=== PATIENT | female | born 1990 | race African-American/Black ===

== ENCOUNTER 2017-10-12 14:54 | Emergency (ER) | payer OTHER ==
[2017-10-12] MEDS ORDERED: NAPROXEN 250 MG TABLET PO ONE (15:39)
[2017-10-12] MEDS ORDERED: BACITRACIN ZINC OINTMENT 15 GM TP ONE (15:39)
[2017-10-12] MEDS ORDERED: DIPH/PERTUSS(ACELL)/TETANUS VAC/PF 0.5 ML SYR (>=10YO) IM ONE (15:39)
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
[2017-10-12 17:32] VITALS: BP 119/53
== END 2017-10-12 17:32 | disposition home or self-care (01) ==
LOC: ER 14:54
DX: S50.01XA Contusion of right elbow, initial encounter (principal); S80.212A Abrasion, left knee, initial encounter; V28.9XXA Unspecified motorcycle rider injured in noncollision transport accident in traffic accident, initial encounter; Z23 Encounter for immunization; F17.200 Nicotine dependence, unspecified, uncomplicated
CPT/HCPCS: 99283; 90471; 73080; 73562; 90715; J3490

== ENCOUNTER 2017-10-28 10:03 | Emergency (ER) | payer OTHER ==
[2017-10-28] MEDS ORDERED: ACETAMINOPHEN 325 MG TABLET PO ONE (10:16)
--- NOTE | 2017-10-28 10:28 | ER Document Report ---
HPI - HPI Pain Level: 4 Notes: Patient is a 27-year-old female who presents to the ED complaining of injury to her left thumb prior to arrival. Patient states that she slammed her left thumb in a door. Patient states that she has had pain in in some swelling since then. Patient states that she has trouble bending her finger because of the pain. She has not noticed any numbness or tingling or break in the skin. The pain does not radiate otherwise. She denies any drug allergies or other significant past medical history. Patient states that she would like a urinary hCG test as well. Denies any headache, fever, neck pain, URI, sore throat, chest pain, palpitations, syncope, cough, shortness of breath, wheeze, dyspnea, abdominal pain, nausea/vomiting/diarrhea, urinary retention, dysuria, hematuria , numbness/tingling, muscle paralysis/weakness, or rash. - ROS Notes: REVIEW OF SYSTEMS: CONSTITUTIONAL : Denies fever, chills, or sweats. Denies recent illness. EENT: Denies eye, ear, throat, or mouth pain or symptoms. Denies nasal or sinus congestion or discharge. Denies throat, tongue, or mouth swelling or difficulty swallowing. CARDIOVASCULAR: Denies chest pain. Denies palpitations or racing or irregular heart beat. Denies ankle edema. RESPIRATORY: Denies cough, cold, or chest congestion. Denies shortness of breath, difficulty breathing, or wheezing. GASTROINTESTINAL: Denies abdominal pain or distention. Denies nausea, vomiting , or diarrhea. Denies blood in vomitus, stools, or per rectum. Denies black, tarry stools. Denies constipation. GENITOURINARY: Denies difficulty urinating, painful urination, burning, frequency, blood in urine, or discharge. MUSCULOSKELETAL: see hpi SKIN: Denies rash, lesions or sores. NEUROLOGICAL: Denies confusion or altered mental status. Denies passing out or loss of consciousness. Denies dizziness or lightheadedness. Denies headache. Denies weakness or paralysis or loss of use of either side. Denies problems with gait or speech. Denies sensory loss, numbness, or tingling. Denies seizures. ALL OTHER SYSTEMS REVIEWED AND NEGATIVE. Dictation was performed using [employer] recognition software Past Medical History - Social History Smoking Status: Current Every Day Smoker Family History: Reviewed & Not Pertinent Renal/ Medical History: Denies: Hx Peritoneal Dialysis - Immunizations Hx Diphtheria, Pertussis, Tetanus Vaccination: No Vertical Provider Document - CONSTITUTIONAL Agree With Documented VS: Yes Notes: PHYSICAL EXAMINATION: GENERAL: Well-appearing, well-nourished and in no acute distress. LUNGS: Breath sounds clear to auscultation bilaterally and equal. No wheezes rales or rhonchi. HEART: Regular rate and rhythm without murmurs, rubs, gallops. Musculoskeletal: Left thumb: + mild swelling noted w/o obvious ecchymosis or erythema. LROM to passive/active, but pt able to flex at each joint. Strength 4 +/5. N/V intact distal. No scaphoid tenderness. + tenderness to the left 1st metacarpal, MCP, and prox phalange. No other bony tenderness. Extremities: No cyanosis, clubbing, or edema b/l. Peripheral pulses 2+. Capillary refill less than 3 seconds. NEUROLOGICAL: Normal speech, normal gait. Normal sensory, motor exams PSYCH: Normal mood, normal affect. SKIN: Warm, Dry, normal turgor, no rashes or lesions noted. - INFECTION CONTROL TRAVEL OUTSIDE OF THE [place] IN LAST 30 DAYS: No - RESPIRATORY O2 Sat by Pulse Oximetry: 100 Course - Re-evaluation Re-evalutation: 10/28/17 11:04 Patient is an afebrile, well-hydrated, 27-year-old female who presents to the ED with a left thumb contusion, and positive test. Vitals are stable. PE is otherwise unremarkable for any neurovascular compromise, obvious tendon/ligament rupture, obvious fracture or dislocation. See x-ray results. Urine hCG was positive. Recommend conservative measures for symptoms. Patient will need a follow-up with her PCM in 3-5 days. She will need to get evaluated with [facility] otherwise for her . Consider consult with orthopedics/physical therapy for ongoing/worsening symptoms. Return to the ED with any worsening/concerning symptoms otherwise as reviewed in discharge. Patient is in agreement. - Vital Signs Vital signs: Temp Pulse Resp BP Pulse Ox 98.7 F 80 18 116/55 L 100 10/28/17 10:09 10/28/17 10:10/28/17 10:10/28/17 10:10/28/17 10:09 Discharge - Discharge Clinical Impression: Positive urine test Thumb contusion Qualifiers: Encounter type: initial encounter Damage to nail status: without damage Laterality: left Qualified Code(s): S60.012A - Contusion of left thumb without damage to nail, initial encounter Condition: Stable Disposition: HOME, SELF-CARE Instructions: ([facility]), [facility], Contusion ([facility]) Additional Instructions: Rest, Ice, Compression, Elevation Tylenol/ibuprofen as needed Light stretches daily Strength exercises as able Moist heat and massage may help F/u with your PCP in 3-5 days for a recheck Consider consult(s) with Orthopedics/physical therapy for ongoing/worsening symptoms Return to the ED with any worsening symptoms and/or development of fever, headache, chest pain, palpitations, syncope, shortness of breath, trouble breathing, abdominal pain, n/v/d, muscle weakness/paralysis, numbness/tingling, swelling, redness, or other worsening symptoms that are concerning to you. Prescriptions: Naproxen 500 mg PO BID PRN #30 tablet PRN Reason: Referrals: [facility] [Provider Group] - Follow up as needed [facility] [Provider Group] - Follow up in 1 week
--- NOTE | 2017-10-28 10:57 | RADIOLOGY REPORT (SQ) ---
EXAM DESCRIPTION: HAND LEFT 3 VIEWS/ attention thumb COMPLETED DATE/TIME: 10/28/2017 10:37 am REASON FOR STUDY: Crush injury left thumb COMPARISON: None. EXAM PARAMETERS: NUMBER OF VIEWS: Three views. TECHNIQUE: AP, lateral and oblique radiographic images acquired of the left hand. LIMITATIONS: None. FINDINGS: MINERALIZATION: Normal. BONES: No acute fracture or dislocation. No worrisome bone lesions. JOINTS: No effusions. SOFT TISSUES: No soft tissue swelling. No foreign body. OTHER: No other significant finding. IMPRESSION: Nothing acute. No fracture identified. TECHNICAL DOCUMENTATION: JOB ID: [id number] [employer]- All Rights Reserved
[2017-10-28 11:24] VITALS: BP 126/66
== END 2017-10-28 11:32 | disposition home or self-care (01) ==
LOC: ER 10:03
DX: S60.012A Contusion of left thumb without damage to nail, initial encounter (principal); W23.0XXA Caught, crushed, jammed, or pinched between moving objects, initial encounter; F17.200 Nicotine dependence, unspecified, uncomplicated; Z32.01 Encounter for pregnancy test, result positive
CPT/HCPCS: 81025; 99283

== ENCOUNTER 2018-05-30 06:01 | Outpatient (CLI) | payer OTHER, MEDICAID ==
[2018-05-30 06:32] LABS: APPEARANCE,URINE CLOUDY; BILIRUBIN,URINE NEGATIVE (NEGATIVE); COLOR,URINE AMBER; GLUCOSE, URINE NEGATIVE (NEGATIVE); KETONES,URINE NEGATIVE (NEGATIVE); LEUKOCYTE ESTERASE,URINE LARGE (NEGATIVE); NITRITE,URINE NEGATIVE (NEGATIVE); PROTEIN,URINE 100 mg/dL (NEGATIVE); URINE SPECIFIC GRAVITY 1.017
[2018-05-30 07:01] LABS: URINE AMPHETAMINES SCREEN NEGATIVE; URINE BARBITURATES SCREEN NEGATIVE; URINE BENZODIAZEPINES SCREEN NEGATIVE; URINE COCAINE SCREEN NEGATIVE; URINE METHADONE SCREEN NEGATIVE; URINE PHENCYCLIDINE SCREEN NEGATIVE
[2018-05-30 07:08] LABS: URINE MARIJUANA (THC) SCREEN UNCONFIRMED POSITIVE
--- NOTE | 2018-05-30 10:33 | Non Stress Test Report ---
Non Stress Test Datetime Report Generated by CPN: 05/30/2018 10:32 DEMOGRAPHIC EGA NST: 39.3 INDICATION Indication for Study: Other Indication for Study (NST) Other: lc VITAL SIGNS Temperature - NST: 98.2 RESP - NST: 15 MONITORING Monitor Explained: Monitor Explained; Test Explained; Patient Verbalized Understanding Time on Monitor: 05/30/2018 07:00 Time off Monitor: 05/30/2018 10:00 NST Duration: 180 NST INTERVENTIONS NST Interventions: PO Hydration; Reposition Patient Physician Notified NST: K Lin CNM BABY A: [id number] BABY A Movement : Present Contraction Frequency : 4-8 FHR Baseline : 120 Accelerations : 15X15 Decelerations : None Variability : Moderate 6-25bpm NST Review: Meets Criteria for Reactive NST NST Review and Verified By : Chastity Kiran RNC NST Results: Reactive NST REPORT Report Trigger: Send Report
== END 2018-05-30 10:05 | disposition home or self-care (01) ==
LOC: LC 06:01
PROVIDERS: ATTEND Student in an Organized Health Care Education/Training Program
PROC: 4A1HXCZ Monitoring of Products of Conception, Cardiac Rate, External Approach (ICD-10-PCS; principal; 2018-05-30)
DX: O47.1 False labor at or after 37 completed weeks of gestation (principal); Z3A.39 39 weeks gestation of pregnancy
CPT/HCPCS: 81005; 80307; 59025; G0480 ×2; 80349

== ENCOUNTER 2018-05-31 10:09 | Outpatient (CLI) | payer OTHER, MEDICAID ==
[2018-05-31 11:04] LABS: APPEARANCE,URINE CLOUDY; BILIRUBIN,URINE NEGATIVE (NEGATIVE); COLOR,URINE AMBER; GLUCOSE, URINE NEGATIVE (NEGATIVE); KETONES,URINE 80 mg/dL (NEGATIVE); LEUKOCYTE ESTERASE,URINE MODERATE (NEGATIVE); NITRITE,URINE NEGATIVE (NEGATIVE); PROTEIN,URINE 100 mg/dL (NEGATIVE)
[2018-05-31] MEDS ORDERED: HYDROXYZINE PAMOATE 50 MG CAPSULE PO ONE (11:17)
[2018-05-31 11:21] LABS: URINE AMPHETAMINES SCREEN NEGATIVE; URINE BARBITURATES SCREEN NEGATIVE; URINE BENZODIAZEPINES SCREEN NEGATIVE; URINE COCAINE SCREEN NEGATIVE; URINE METHADONE SCREEN NEGATIVE; URINE PHENCYCLIDINE SCREEN NEGATIVE
[2018-05-31] MEDS ORDERED: HYDROXYZINE PAMOATE 50 MG CAPSULE ONE (11:24)
[2018-05-31 11:28] LABS: URINE MARIJUANA (THC) SCREEN UNCONFIRMED POSITIVE
--- NOTE | 2018-05-31 12:06 | Non Stress Test Report ---
Non Stress Test Datetime Report Generated by CPN: 05/31/2018 12:06 DEMOGRAPHIC EGA NST: 39.4 INDICATION Indication for Study: Ordered by Provider Indication for Study (NST) Other: LC MONITORING Monitor Explained: Monitor Explained; Test Explained; Patient Verbalized Understanding Time on Monitor: 05/31/2018 10:29 Time off Monitor: 05/31/2018 11:27 NST Duration: 58 NST INTERVENTIONS NST Interventions: PO Hydration; Reposition Patient Physician Notified NST: Dr. Khan-Dalton BABY A: [id number] BABY A Movement : Present Contraction Frequency : 3-5 FHR Baseline : 140 Accelerations : 15X15 Variability : Moderate 6-25bpm NST Review: Meets Criteria for Reactive NST NST Review and Verified By : Yadira Zapata RN NST Results: Reactive NST REPORT Report Trigger: Send Report
== END 2018-05-31 11:37 | disposition home or self-care (01) ==
LOC: LC 10:09
PROVIDERS: ATTEND Obstetrics & Gynecology Gynecology
PROC: 4A1HXCZ Monitoring of Products of Conception, Cardiac Rate, External Approach (ICD-10-PCS; principal; 2018-05-31)
DX: O47.1 False labor at or after 37 completed weeks of gestation (principal); Z3A.39 39 weeks gestation of pregnancy
CPT/HCPCS: 59025; 80307; 81005

== ENCOUNTER 2018-06-01 02:33 | Inpatient (IN) | payer OTHER, MEDICAID ==
[2018-06-01] MEDS ORDERED: RINGERS SOLUTION,LACTATED 1,000 ML IV ONE ×2 (02:37→02:45)
[2018-06-01] MEDS ORDERED: ONDANSETRON HCL INJ/PF 4 MG/2 ML SDV IV ONE ×2 (03:16→10:36)
[2018-06-01] MEDS ORDERED: ONDANSETRON HCL INJ/PF 4 MG/2 ML SDV ONE ×3 (03:18→10:54)
[2018-06-01] MEDS ORDERED: FENTANYL/BUPIVACAINE/NS/PF 300 MCG/150 ML RTUINJ EPI ONE (03:26)
[2018-06-01] MEDS ORDERED: EPHEDRINE SULFATE INJ 50 MG/1 ML AMPULE ONE ×2 (03:26→10:54)
[2018-06-01 03:27] LABS: ABSOLUTE LYMPHOCYTES (AUTO) 1.2 10^3/uL (0.5-4.7); ABSOLUTE NEUT (AUTO) 12.8 10^3/uL (1.7-8.2); BASOPHILS % (AUTO) 0.1 % (0-2); EOSINOPHILS % (AUTO) 0.2 % (0-6); HEMATOCRIT 33.9 % (36.0-47.0); HEMOGLOBIN 11.7 g/dL (12.0-15.5); LYMPHOCYTES % (AUTO) 7.9 % (13-45); MEAN CORPUSCULAR HEMOGLOBIN 31.4 pg (27.0-33.4); MEAN CORPUSCULAR HGB CONC 34.5 g/dL (32.0-36.0); MEAN CORPUSCULAR VOLUME 91 fl (80-97); MONOCYTES % (AUTO) 6.4 % (3-13); PLATELET COUNT 207 10^3/uL (150-450); RED BLOOD COUNT 3.71 10^6/uL (3.72-5.28); SEGMENTED NEUTROPHILS % (AUTO) 85.4 % (42-78); TOTAL CELLS COUNTED % (AUTO) 100 %
[2018-06-01] MEDS ORDERED: BUPIVACAINE HCL 0.25 % INJ/PF (2.5 MG/1 ML) 30 ML VIAL ONE (03:27)
[2018-06-01] MEDS: RINGERS SOLUTION,LACTATED 1,000 ML IV PRN ×4 (03:48→21:44)
[2018-06-01] MEDS ORDERED: OXYTOCIN/NORMAL SALINE 0 UNIT/0 ML RTUINJ ONE (07:20)
[2018-06-01] MEDS ORDERED: OXYTOCIN/NORMAL SALINE 20 UNIT/1,000 ML RTUINJ IV PRN ×2 (07:43→11:43)
[2018-06-01] MEDS ORDERED: CEFAZOLIN 2 GM/D5W RTU 2 GM/50 ML RTUPB IV ONE ×2 (10:34→10:37)
[2018-06-01] MEDS ORDERED: AZITHROMYCIN INJ 500 MG VIAL IV ONE (10:34)
[2018-06-01] MEDS ORDERED: CITRIC ACID/SODIUM CITRATE ORAL SOLN 15 ML UDCUP ONE (10:36)
[2018-06-01] MEDS ORDERED: LIDOCAINE 2% INJ-PF (20 MG/ML) 10 ML AMPUL ONE (10:37)
[2018-06-01] MEDS ORDERED: AZITHROMYCIN 500 MG in DEXTROSE 5%-WATER 250 ML IV ONE (10:38)
[2018-06-01] MEDS ORDERED: OXYTOCIN 10 UNIT/ML VIAL ONE ×2 (10:53→11:44)
[2018-06-01] MEDS ORDERED: KETOROLAC TROMETHAMINE INJ/PF 30 MG/1 ML SDV ONE (10:54)
[2018-06-01] MEDS ORDERED: OXYTOCIN/NORMAL SALINE 20 UNIT/1,000 ML RTUINJ ONE (10:54)
[2018-06-01] MEDS ORDERED: MIDAZOLAM 2 MG/2 ML INJ ONE (10:54)
[2018-06-01] MEDS ORDERED: FENTANYL CITRATE INJ/PF 100 MCG/2 ML AMPUL ONE ×2 (10:54→13:17)
[2018-06-01] MEDS ORDERED: ACETAMINOPHEN 1,000 MG/100 ML RTUPB IV ONE (10:54)
[2018-06-01] MEDS ORDERED: SIMETHICONE 80 MG TAB.CHEW PO PRN (11:43)
[2018-06-01] MEDS ORDERED: OXYCODONE-ACETAMINOPHEN 5-325 MG TABLET PO PRN (11:43)
[2018-06-01] MEDS ORDERED: DIPH/PERTUSS(ACELL)/TETANUS VAC/PF 0.5 ML SYR (>=10YO) IM PRN (11:43)
[2018-06-01] MEDS ORDERED: ACETAMINOPHEN 325 MG TABLET PO PRN (11:43)
[2018-06-01] MEDS ORDERED: PROMETHAZINE HCL INJ 25 MG/1 ML VIAL IV PRN (11:43)
[2018-06-01] MEDS ORDERED: MEASLES,MUMPS&RUBELLA VACC/PF 0.5 ML VIAL SUBCUT PRN (11:43)
[2018-06-01] MEDS ORDERED: MORPHINE SULFATE 10 MG/ML INJ ONE ×2 (12:18→12:36)
--- NOTE | 2018-06-01 13:45 | Delivery Summary ---
Del Sum A-C Datetime Report Generated by CPN: 06/01/2018 13:45 DELIVERY PERSONNEL DELIVERY PERSONNEL: [id number] Delivery Doctor:: Campos Haque MD Anesthesiologist:: Paolo Alexis MD LEGAL EXECUTIVE ASSISTANT:: Kirk Palencia CRNA Labor and Delivery Nurse:: Teri Zapata RN Construction Millwright:: Odalis Kothari RN Neonatal Nurse Practitioner:: JOSÉ Metzger Nursery Nurse:: Melissa Real RN Law Secretary/ORACLE R12 DEVELOPER: ST Damien Law Secretary/ORACLE R12 DEVELOPER: Jameeenoc Maldonado, CHAINSTITCH FELLED SEAM OPERATOR MATERNAL INFORMATION Delivery Anesthesia: Epidural Medications After Delivery: Pitocin Bolus-Please Comment Meds After Delivery Comment: 40 units in 1000mls NS Maternal Complications: None LABOR SUMMARY EDC: 06/03/2018 00:00 No. Babies in Womb: 1 Attempted: No Labor Anesthesia: Epidural LABOR INFORMATION Reason for Induction: Not Applicable Onset of Labor: 06/01/2018 01:00 Oxytocin: Augmentation Group B Beta Strep: Negative Steroids Given: None Reason Steroids Not Administered: Not Applicable MEMBRANES Membranes Rupture Method: Spontaneous Rupture of Membranes: 06/01/2018 01:00 Length of Rupture (hr): 10.22 Amniotic Fluid Color: Moderate Meconium Amniotic Fluid Amount: Moderate Amniotic Fluid Odor: Normal STAGES OF LABOR Stage 3 hr: 0 Stage 3 min: 1 Total Time in Labor hr: 10 Total Time in Labor min: 14 VAGINAL DELIVERY Episiotomy: None Laceration #1: None Laceration Extension #1: N/A Laceration Repair: Not Applicable Sponge Count Correct: N/A Sharps Count Correct: N/A CSECTION DELIVERY Primary Indication: Nonreassuring Status Secondary Indication: N/A CSection Urgency: Emergency CSection Incidence: Primary Labor: Labor Elective: Nonelective CSection Incision: Lower Uterine Transverse BABY A INFORMATION Delivery Date/Time: 06/01/2018 11:13 Method of Delivery: Born in Route : No : N/A Forceps: N/A Vacuum Extraction: N/A Shoulder Dystocia : No PRESENTATION/POSITION BABY A Presentation: Cephalic Cephalic Presentation: Vertex Vertex Position: Left Occipital Posterior Breech Presentation: N/A PLACENTA INFORMATION BABY A Placenta Delivery Time : 06/01/2018 11:14 Placenta Method of Delivery: Manual Removal Placenta Status: Delivered SCORES BABY A Heart Rate 1 min: Slow, Below 100 bpm Resp Effort 1 min: Absent Reflex Irritability 1 min: Grimace Muscle Tone 1 min: Some Flexion of Extremities Color 1 min: Body [place], Extremities Blue Resuscitation Effort 1 min: Tactile Stimulation; PPV/NCPAP SCORE 1 MIN: 4 Heart Rate 5 min: >100 bpm Resp Effort 5 min: Good Cry Reflex Irritability 5 min: Cough or Sneeze or Pulls Away Muscle Tone 5 min: Active Motion Color 5 min: Body [place], Extremities Blue Resuscitation Effort 5 min: N/A SCORE 5 MIN: 9 INFANT INFORMATION BABY A Gestational Age at Delivery: 39.5 Gestational Status: Full Term- 39- 40.6 Weeks Infant Outcome : Liveborn Infant Condition : Stable Sex: Male IDENTIFICATION BABY A Verification Date/Time: 06/01/2018 11:15 ID Band Number: [id number] Mother's Name Verified: Yes Infant RN Verifying Infant: B Baidy, RN WEIGHT/LENGTH BABY A Infant Birthweight (gm): 3200 Infant Weight (lb): 7 Weight (oz): 1 Infant Length (in): 20.00 Length (cm): 50.80 CORD INFORMATION BABY A No. Cord Vessels: 3 Nuchal Cord : N/A Cord Blood Taken: Yes-For Eval (Mom's Blood Type - or O+) Infant Suction: Mouth; Nose ASSESSMENT BABY A Infant Complications: Multiple Late Decels; Meconium Physical Findings at Delivery: Puncture Wound from Scalp Electrode Physical Findings- Other: umbilical hernia Infant Respirations: Tachypnea Skin to Skin: No Boat Laborer/ALS Called : Yes Infant Care By: Chao Real RN Transferred To: [facility] BABY B INFORMATION : N/A SIGNATURES Signature: with User ID: [email or web address]
[2018-06-01] MEDS ORDERED: HYDROMORPHONE HCL INJ/PF 2 MG/ML AMPULE ONE (14:33)
[2018-06-01] MEDS ORDERED: HYDROMORPHONE HCL INJ/PF 2 MG/ML AMPULE IV PRN (15:00)
[2018-06-01] MEDS: DOCUSATE SODIUM 100 MG CAPSULE PO SCH (17:26)
[2018-06-01] MEDS: IBUPROFEN 800 MG TABLET PO SCH (17:26)
[2018-06-01] MEDS: OXYCODONE-ACETAMINOPHEN 5-325 MG TABLET PO PRN ×2 (17:26→21:44)
--- NOTE | 2018-06-01 19:15 | OPERATIVE REPORT E ---
Operative Report NAME: STARR HICKEY : 1990 AGE: 28Y DATE OF SURGERY: 06/01/2018 ROOM: 227 PREOPERATIVE DIAGNOSIS: INTRAUTERINE AT TERM WITH RUPTURE OF MEMBRANES, MECONIUM-STAINED FLUID, NONREASSURING STRIP. POSTOPERATIVE DIAGNOSIS: INTRAUTERINE AT TERM WITH RUPTURE OF MEMBRANES, MECONIUM-STAINED FLUID, NONREASSURING STRIP. OPERATION: Primary low transverse section, delivery of viable male, Apgars of 4 and 9, at 7 pounds, 1 ounce. SURGEON: Hayden LARA M.D. ANESTHESIA: Epidural. ESTIMATED BLOOD LOSS: Less than 1000 mL. TISSUE REMOVED OR ALTERED: Placenta. PROCEDURE: The patient was placed in the supine position, rolled right side, prepped and draped sterile fashion. Pfannenstiel incision made. Incision extended through subcutaneous tissue and fascia with sharp dissection. Fascia divided. Rectus muscle bluntly and sharply divided. *------* peritoneum was entered with sharp dissection. The uterus was nicked in the midline, extended bilaterally. was then delivered through the uterine and abdominal incision. Nose and mouth suctioned with bulb syringe. Cord was clamped. was passed from the table. Placenta was manually extracted. The uterus was then closed using 0 Vicryl, first a running stitch, then a second Lembert suture, imbricating the first layer. Small area of bleeding was noted on the right, controlled with [id number] sutures of 0 Vicryl. Hemostasis was noted. The fascia was closed with #1 Vicryl and skin with subcuticular absorbable moncho. Her urine remained clear throughout the procedure. She was taken to the recovery room in good condition and the to nursery in good condition. DICTATING PHYSICIAN: Hayden LARA M.D. [id number] PHY#: [id number] ID: [id number] JOB#: [id number] ACCT: [id number] cc:Hayden LARA M.D. >
[2018-06-02] MEDS: IBUPROFEN 800 MG TABLET PO SCH ×4 (01:30→17:19)
[2018-06-02 06:19] LABS: HEMATOCRIT 31.3 % (36.0-47.0); HEMOGLOBIN 10.4 g/dL (12.0-15.5); MEAN CORPUSCULAR HEMOGLOBIN 30.8 pg (27.0-33.4); MEAN CORPUSCULAR HGB CONC 33.2 g/dL (32.0-36.0); MEAN CORPUSCULAR VOLUME 93 fl (80-97); PLATELET COUNT 212 10^3/uL (150-450); RED BLOOD COUNT 3.37 10^6/uL (3.72-5.28); RED CELL DISTRIBUTION WIDTH 13.9 % (11.5-14.0)
--- NOTE | 2018-06-02 10:03 | PDOC PROGRESS REPORT ---
Subjective-OB Progress Note for:: 06/02/18 Subjective: C/s Day #1, doing well, no complaints, up voiding w/out difficulty, breast and bottle feeding Physical Exam (OB) Vital Signs: Temp Pulse Resp BP Pulse Ox 98.4 F 77 16 97/51 L 100 06/02/18 08:05 06/02/18 08:05 06/02/18 08:05 06/02/18 08:05 06/02/18 08:05 Intake & Output 06/01/18 06/02/18 06/03/18 06:59 06:59 06:59 Intake Total 3599 Output Total 1000 Balance 2599 Weight 80.8 kg - Dressing Removed: Yes - Medipore dressing CD&I Incision: Dressing Closure Type: Steri-Strips - will add steri-strips to the incision today - Lochia Lochia Amount: Small 10-25 ml Lochia Color: Rubra/Red - Abdomen Description: Tender, Soft, Round Hernia Present: No Fundal Description: Firm, Midline Fundal Height: u/u - u/2 Objective-Diagnostic Laboratory: 06/02/18 06:11 06/02/18 06:11 WBC 18.0 H RBC 3.37 L Hgb 10.4 L Hct 31.3 L MCV 93 MCH 30.8 MCHC 33.2 RDW 13.9 Plt Count 212 Assessment and Plan(PN) - Time Spent with Patient Time with patient: Less than 15 minutes Medications reviewed and adjusted accordingly: Yes - Disposition Anticipated Discharge: Home Within: within 48 hours Disposition: stable
[2018-06-02] MEDS: DOCUSATE SODIUM 100 MG CAPSULE PO SCH ×2 (10:26→17:19)
[2018-06-02] MEDS: PRENATAL VITAMIN W DHA CAPSULE PO SCH (10:26)
[2018-06-02] MEDS: OXYCODONE-ACETAMINOPHEN 5-325 MG TABLET PO PRN ×2 (15:22→22:42)
[2018-06-03] MEDS: IBUPROFEN 800 MG TABLET PO SCH ×3 (00:06→11:45)
--- NOTE | 2018-06-03 08:51 | PDOC PROGRESS REPORT ---
Subjective-OB Progress Note for:: 06/03/18 Subjective: Pt doing well today, no complaints, desires to go home today Physical Exam (OB) Vital Signs: Temp Pulse Resp BP Pulse Ox 98.8 F 99 18 113/67 100 06/03/18 07:55 06/03/18 07:55 06/03/18 07:55 06/03/18 07:55 06/03/18 07:55 Intake & Output 06/02/18 06/03/18 06/04/18 06:59 06:59 06:59 Intake Total 3599 1225 Output Total 1000 Balance 2599 1225 Weight 80.8 kg - Dressing Removed: Yes - Medipore dressing CD&I Incision: Well Approximated Closure Type: Steri-Strips - Lochia Lochia Amount: Scant < 10 ml Lochia Color: Rubra/Red - Abdomen Description: Tender, Soft, Round Hernia Present: No Fundal Description: Firm, Midline Fundal Height: u/u - u/2 - Extremities Lower extremities: Edema - trace Objective-Diagnostic Laboratory: 06/02/18 06:11 Assessment and Plan(PN) - Time Spent with Patient Medications reviewed and adjusted accordingly: Yes - Disposition Anticipated Discharge: Home
--- NOTE | 2018-06-03 09:19 | PDOC DISCHARGE SUMMARY ---
Final Diagnosis Discharge Date: 06/03/18 - Final Diagnosis (1) intolerance to labor, delivered, current hospitalization Is this a current diagnosis for this admission?: Yes (2) Status post primary low transverse section Is this a current diagnosis for this admission?: Yes Discharge Data - Discharge Medication Prescriptions: Ibuprofen [Motrin 800 mg Tablet] 800 mg PO Q6 #30 tablet Oxycodone HCl/Acetaminophen [Percocet 5-325 mg Tablet] 2 tab PO Q4HP PRN #30 tablet PRN Reason: Home Medications: Prenat 115/Iron Fum/Folic/Dss [ 19 Tablet] 1 tab PO DAILY 05/30/18 Ibuprofen [Motrin 800 mg Tablet] 800 mg PO Q6 #30 tablet 06/03/18 Oxycodone HCl/Acetaminophen [Percocet 5-325 mg Tablet] 2 tab PO Q4HP PRN #30 tablet 06/03/18 Reason(s) for Admission: Onset of Labor, PROM Admission Note: done Procedures: Ultrasound Procedure(s) Note: done Intrapartum Procedure(s): : Low Cervical, Transverse Intrapartum Procedure Note: done Complication(s) Note: none - Data Baby 1 Male at 1 minute: 4 at 5 minutes: 9 Weight: 3.203 kg Home with Mother: Yes Complications: No - Diagnosis Test Laboratory: Temp Pulse Resp BP Pulse Ox 98.8 F 99 18 113/67 100 06/03/18 07:55 06/03/18 07:55 06/03/18 07:55 06/03/18 07:55 06/03/18 07:55 06/01/18 06/02/18 03:02 06:11 RBC 3.71 L 3.37 L Hgb 11.7 L 10.4 L Hct 33.9 L 31.3 L - Discharge information/Instructions Discharge Activity: Activity As Tolerated, No Lifting Over 10 Pounds, Pelvic Rest - x 6 wks Discharge Diet: Regular Disposition: HOME, SELF-CARE Follow up with: [facility] in: 3, Weeks
[2018-06-03] MEDS: PRENATAL VITAMIN W DHA CAPSULE PO SCH (11:45)
[2018-06-03] MEDS: DOCUSATE SODIUM 100 MG CAPSULE PO SCH (11:46)
[2018-06-03 12:27] VITALS: BP 109/56
== END 2018-06-03 12:57 | disposition home or self-care (01) | DRG 766 ==
LOC: LC 02:33 → LR 02:41 → 2S 14:13
PROVIDERS: ADMIT Obstetrics & Gynecology; ATTEND Obstetrics & Gynecology
PROC: 10D00Z1 Extraction of Products of Conception, Low, Open Approach (ICD-10-PCS; principal; 2018-06-01)
PROC: 4A1H7CZ Monitoring of Products of Conception, Cardiac Rate, Via Natural or Artificial Opening (ICD-10-PCS; 2018-06-01)
PROC: 10H073Z Insertion of Monitoring Electrode into Products of Conception, Via Natural or Artificial Opening (ICD-10-PCS; 2018-06-01)
DX: O76 Abnormality in fetal heart rate and rhythm complicating labor and delivery (principal); O42.90 Premature rupture of membranes, unspecified as to length of time between rupture and onset of labor, unspecified weeks of gestation; O77.0 Labor and delivery complicated by meconium in amniotic fluid; Z3A.39 39 weeks gestation of pregnancy; Z37.0 Single live birth
CPT/HCPCS: 1961; 36415; 85025; 85027; 86592; 86850; 86900; 86901; 88307; 94760; 94799; 99465; J0131; J0456; J0690; J1170; J1885; J2250; J2270; J2405; J2590; J3010; J3490; J7120

== ENCOUNTER 2018-11-20 08:18 | Day surgery (SDC) | payer MEDICAID, OTHER ==
[2018-11-20 09:02] LABS: HEMATOCRIT 38.2 % (36.0-47.0); HEMOGLOBIN 12.8 g/dL (12.0-15.5); MEAN CORPUSCULAR HEMOGLOBIN 29.6 pg (27.0-33.4); MEAN CORPUSCULAR HGB CONC 33.5 g/dL (32.0-36.0); MEAN CORPUSCULAR VOLUME 89 fl (80-97); PLATELET COUNT 290 10^3/uL (150-450); RED BLOOD COUNT 4.32 10^6/uL (3.72-5.28); RED CELL DISTRIBUTION WIDTH 13.9 % (11.5-14.0); WHITE BLOOD COUNT 13.7 10^3/uL (4.0-10.5)
[2018-11-20 09:10] VITALS: BP 116/61
[2018-11-20 09:14] LABS: APPEARANCE,URINE CLOUDY; BILIRUBIN,URINE NEGATIVE (NEGATIVE); GLUCOSE, URINE NEGATIVE (NEGATIVE); KETONES,URINE 20 mg/dL (NEGATIVE); LEUKOCYTE ESTERASE,URINE LARGE (NEGATIVE); NITRITE,URINE NEGATIVE (NEGATIVE); PROTEIN,URINE 30 mg/dL (NEGATIVE); URINE SPECIFIC GRAVITY 1.026
[2018-11-20 09:15] LABS: COLOR,URINE YELLOW
== END 2018-11-20 09:30 | disposition home or self-care (01) ==
LOC: OROUT 08:18
PROVIDERS: ATTEND Obstetrics & Gynecology Gynecology
DX: Z53.8 Procedure and treatment not carried out for other reasons (principal); Z32.01 Encounter for pregnancy test, result positive; N90.7 Vulvar cyst; Z87.891 Personal history of nicotine dependence
CPT/HCPCS: 36415; 81001; 81025; 85027

== ENCOUNTER 2019-10-15 17:14 | Emergency (ER) | payer OTHER ==
--- NOTE | 2019-10-15 20:50 | ER Document Report ---
HPI - HPI Time Seen by Provider: 10/15/19 20:42 Pain Level: 3 Notes: Otherwise healthy 29-year-old female presenting to the emergency department with flu symptoms x1 week. She states that she has sore throat, congestion, runny nose, vomiting and fatigue. She has not vomited in the last 2 days. She denies fever but reports chills. - REPRODUCTIVE Reproductive: REPORTS: : Past Medical History - General Information source: Patient - Social History Smoking Status: Current Every Day Smoker Frequency of alcohol use: None Drug Abuse: None Family History: Reviewed & Not Pertinent Patient has suicidal ideation: No Patient has homicidal ideation: No - Medical History Medical History: Negative - Past Medical History Cardiac Medical History: Denies: Hx Coronary Artery Disease, Hx Heart Attack, Hx Hypertension Pulmonary Medical History: Denies: Hx Asthma, Hx Bronchitis, Hx COPD, Hx Pneumonia Neurological Medical History: Denies: Hx Cerebrovascular Accident, Hx Seizures Renal/ Medical History: Denies: Hx Peritoneal Dialysis Musculoskeletal Medical History: Denies Hx Arthritis Past Surgical History: Reports: Hx Section - Immunizations Hx Diphtheria, Pertussis, Tetanus Vaccination: No Vertical Provider Document - CONSTITUTIONAL Notes: PHYSICAL EXAMINATION: GENERAL: Well-appearing, well-nourished and in no acute distress. HEAD: Atraumatic, normocephalic. EYES: Pupils equal round and reactive to light, extraocular movements intact, conjunctiva are normal. ENT: Nares patent, oropharynx clear without exudates. Moist mucous membranes. NECK: Normal range of motion, supple without lymphadenopathy LUNGS: Breath sounds clear to auscultation bilaterally and equal. No wheezes rales or rhonchi. HEART: Regular rate and rhythm without murmurs ABDOMEN: Soft, nontender, nondistended abdomen. No guarding, no rebound. No masses appreciated. Female : deferred Musculoskeletal: Normal range of motion, no pitting or edema. No cyanosis. NEUROLOGICAL: Cranial nerves grossly intact. Normal speech, normal gait. Normal sensory, motor exams PSYCH: Normal mood, normal affect. SKIN: Warm, Dry, normal turgor, no rashes or lesions noted. - INFECTION CONTROL TRAVEL OUTSIDE OF THE [place] IN LAST 30 DAYS: No Course - Re-evaluation Re-evalutation: Patient's symptoms consistent with influenza-like illness. Patient would definitely be outside of the treatment window. Patient opted to not have testing done today. She will be given prescriptions for supportive care for her symptoms. She will be given a work note. Patient discharged home with strict ED return precautions. Patient verbalized understanding and agreement with this plan. - Vital Signs Vital signs: Temp Pulse Resp BP Pulse Ox 98.0 F 79 16 122/85 100 10/15/19 17:39 10/15/19 17:39 10/15/19 17:39 10/15/19 17:39 10/15/19 17:39 Discharge - Discharge Clinical Impression: Flu-like illness, Viral upper respiratory infection Condition: Stable Disposition: HOME, SELF-CARE Instructions: Viral Syndrome ([facility]) Additional Instructions: Please take medications as prescribed. Rest over the next several days. Take Tylenol or Motrin for your symptoms. Drink plenty of fluids. Follow-up with your primary care provider in 3 to 5 days if not improving. No work tomorrow. Prescriptions: Codeine Phosphate/Guaifenesin [Cheratussin AC Syrup] 10 ml PO QHS #120 ml Benzonatate [Tessalon Perles 100 mg Capsule] 1 - 2 tab PO Q8HP PRN #30 capsule PRN Reason: Prednisone [Deltasone 20 mg Tablet] 3 tab PO DAILY 5 Days #15 tablet Forms: Return to Work Referrals: ARTI MORENO MD [ACTIVE STAFF] - Follow up as needed
[2019-10-15 20:53] VITALS: BP 103/68
== END 2019-10-15 20:52 | disposition home or self-care (01) ==
LOC: ER 17:14
DX: J06.9 Acute upper respiratory infection, unspecified (principal); R11.10 Vomiting, unspecified; R53.83 Other fatigue; F17.200 Nicotine dependence, unspecified, uncomplicated
CPT/HCPCS: 99283

== ENCOUNTER 2020-08-23 16:04 | Emergency (ER) | payer OTHER ==
[2020-08-23] MEDS ORDERED: MAG HYDROX/AL HYDROX/SIMETH SUSP 30 ML UDCUP PO ONE (16:12)
[2020-08-23] MEDS ORDERED: LIDOCAINE 2% VISCOUS SOLN 15 ML UDCUP PO ONE (16:12)
--- NOTE | 2020-08-23 16:14 | ER Document Report ---
ED Medical Screen (RME) - General Stated Complaint: UPPER ABDOMINAL PAIN Time Seen by Provider: 08/23/20 16:10 Mode of Arrival: Ambulatory Information source: Patient Notes: Patient presents complaining of upper abdominal pain since yesterday. Patient denies any nausea vomiting or diarrhea. Patient denies any urinary symptoms. Patient denies any cough or cold symptoms. Patient denies any significant medical history. I have greeted and performed a rapid initial assessment of this patient. A comprehensive ED assessment and evaluation of the patient, analysis of test results and completion of the medical decision making process will be conducted by additional ED providers. TRAVEL OUTSIDE OF THE [place] IN LAST 30 DAYS: No - Related Data Allergies/Adverse Reactions: No Known Allergies Allergy (Verified 10/15/19 20:36) Past Medical History - Past Medical History Cardiac Medical History: Denies: Hx Coronary Artery Disease, Hx Heart Attack, Hx Hypertension Pulmonary Medical History: Denies: Hx Asthma, Hx Bronchitis, Hx COPD, Hx Pneumonia Neurological Medical History: Denies: Hx Cerebrovascular Accident, Hx Seizures Renal/ Medical History: Denies: Hx Peritoneal Dialysis Musculoskeltal Medical History: Denies Hx Arthritis Past Surgical History: Reports: Hx Section - Immunizations Hx Diphtheria, Pertussis, Tetanus Vaccination: No Physical Exam - General General appearance: Appears well, Alert In distress: None Notes: Upper abdominal tenderness, right upper quadrant left upper quadrant epigastric area
[2020-08-23 16:47] LABS: ABSOLUTE EOSINOPHILS # (AUTO) 0.2 10^3/uL (0.0-0.6); ABSOLUTE LYMPHOCYTES (AUTO) 2.9 10^3/uL (0.5-4.7); ABSOLUTE MONOCYTES (AUTO) 0.6 10^3/uL (0.1-1.4); BASOPHILS % (AUTO) 0.4 % (0-2); EOSINOPHILS % (AUTO) 2.6 % (0-6); HEMATOCRIT 38.8 % (36.0-47.0); HEMOGLOBIN 13.3 g/dL (12.0-15.5); LYMPHOCYTES % (AUTO) 32.8 % (13-45); MEAN CORPUSCULAR HEMOGLOBIN 31.2 pg (27.0-33.4); MEAN CORPUSCULAR HGB CONC 34.3 g/dL (32.0-36.0); MEAN CORPUSCULAR VOLUME 91 fl (80-97); MONOCYTES % (AUTO) 6.5 % (3-13); PLATELET COUNT 309 10^3/uL (150-450); RED BLOOD COUNT 4.27 10^6/uL (3.72-5.28); RED CELL DISTRIBUTION WIDTH 13.7 % (11.5-14.0); SEGMENTED NEUTROPHILS % (AUTO) 57.7 % (42-78); TOTAL CELLS COUNTED % (AUTO) 100 %; WHITE BLOOD COUNT 8.8 10^3/uL (4.0-10.5)
[2020-08-23 17:01] LABS: APPEARANCE,URINE SLIGHTLY-CLOUDY; BILIRUBIN,URINE NEGATIVE (NEGATIVE); COLOR,URINE YELLOW; GLUCOSE, URINE NEGATIVE (NEGATIVE); KETONES,URINE NEGATIVE (NEGATIVE); LEUKOCYTE ESTERASE,URINE NEGATIVE (NEGATIVE); NITRITE,URINE NEGATIVE (NEGATIVE); PROTEIN,URINE NEGATIVE (NEGATIVE); URINE SPECIFIC GRAVITY 1.024; UROBILINOGEN,URINE NEGATIVE mg/dL (<2.0)
[2020-08-23 17:03] LABS: ALBUMIN 4.4 g/dL (3.5-5.0); ALKALINE PHOSPHATASE 74 U/L (38-126); ANION GAP 8 (5-19); ASPARTATE AMINO TRANSFERASE 26 U/L (14-36); BILIRUBIN,DIRECT 0.1 mg/dL (0.0-0.4); BILIRUBIN,TOTAL 0.4 mg/dL (0.2-1.3); BLOOD UREA NITROGEN 15 mg/dL (7-20); CALCIUM 9.5 mg/dL (8.4-10.2); CARBON DIOXIDE 24 mmol/L (22-30); CHLORIDE 107 mmol/L (98-107); GLUCOSE 83 mg/dL (75-110); POTASSIUM 4.1 mmol/L (3.6-5.0); TOTAL PROTEIN 7.6 g/dL (6.3-8.2)
--- NOTE | 2020-08-23 18:03 | RADIOLOGY REPORT (SQ) ---
EXAM DESCRIPTION: U/S ABDOMEN LIMITED W/O DOP IMAGES COMPLETED DATE/TIME: 08/23/2020 5:01 pm REASON FOR STUDY: upper abd pain COMPARISON: None. TECHNIQUE: Dynamic and static grayscale images acquired of the abdomen and recorded on PACS. Additio nal selected color Doppler and spectral images recorded. LIMITATIONS: None. FINDINGS: PANCREAS: No masses. Visualized pancreatic duct normal caliber. LIVER: Increased echogenicity. Slightly heterogeneous. LIVER VASCULATURE: Normal directional flow of the main portal vein and hepatic veins. GALLBLADDER: No stones. Normal wall thickness. No pericholecystic fluid. ULTRASOUND-DETECTED FLOWER'S SIGN: Negative. INTRAHEPATIC DUCTS AND COMMON DUCT: CBD and intrahepatic ducts normal caliber. No filling defects. AORTA: No aneurysm. RIGHT KIDNEY: Normal size, 9.9 cm. Normal echogenicity. No solid or suspicious masses. No hydronephr osis. No calcifications. PERITONEAL AND RIGHT PLEURAL SPACE: No ascites or effusions. OTHER: No other significant findings. IMPRESSION: Hepatic steatosis. TECHNICAL DOCUMENTATION: JOB ID: [id number] 2010 [employer]- All Rights Reserved Reading location - IP/workstation name: [email or web address]
[2020-08-23] MEDS ORDERED: KETOROLAC TROMETHAMINE 60 MG/2 ML SDV IM ONE (20:33)
--- NOTE | 2020-08-23 21:10 | RADIOLOGY REPORT (SQ) ---
EXAM DESCRIPTION: XR CHEST 2 VIEWS COMPLETED DATE/TME: 08/23/2020 20:32 CLINICAL HISTORY: 30 years, Female, lower rib pain COMPARISON: None. NUMBER OF VIEWS: TECHNIQUE: LIMITATIONS: None. FINDINGS: No evidence of pulmonary infiltrate or pleural effusion. The heart and mediastinum are unremarkable. Pulmonary vascularity appears normal. No gross evidence of rib fracture. IMPRESSION: No acute finding. copyright 2010 [employer]- All Rights Reserved
--- NOTE | 2020-08-23 21:15 | ER Document Report ---
ED GI/ - General Chief Complaint: Upper Abdominal Pain Stated Complaint: UPPER ABDOMINAL PAIN Time Seen by Provider: 08/23/20 16:10 Mode of Arrival: Ambulatory TRAVEL OUTSIDE OF THE [place] IN LAST 30 DAYS: No - HPI Notes: 08/23/20 21:11 Patient is a 30-year-old female with no significant past medical history who presents with upper abdominal pain. Patient states that pain started yesterday. It is across her upper abdomen and worse with palpation and movement. Pain is achy. 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 She has not taken anything for the pain. Patient denies nausea, vomiting, diarrhea, constipation. No fevers or chills. No recent surgeries. No chest pain or shortness of breath. 08/23/20 23:57 - Related Data Allergies/Adverse Reactions: No Known Allergies Allergy (Verified 10/15/19 20:36) Past Medical History - General Information source: Patient - Social History Smoking Status: Current Every Day Smoker Frequency of alcohol use: x2 liquour minis and 3 beers a day Drug Abuse: None Family History: Reviewed & Not Pertinent Patient has homicidal ideation: No - Past Medical History Cardiac Medical History: Denies: Hx Coronary Artery Disease, Hx Heart Attack, Hx Hypertension Pulmonary Medical History: Denies: Hx Asthma, Hx Bronchitis, Hx COPD, Hx Pneumonia Neurological Medical History: Denies: Hx Cerebrovascular Accident, Hx Seizures Renal/ Medical History: Denies: Hx Peritoneal Dialysis Musculoskeletal Medical History: Denies Hx Arthritis Past Surgical History: Reports: Hx Section - Immunizations Hx Diphtheria, Pertussis, Tetanus Vaccination: No Review of Systems - Review of Systems Notes: CONSTITUTIONAL: No fever, fatigue or weight loss. SKIN: No rash. HENT: No congestion, ear pain, or sore throat. EYES: No recent vision problems or eye pain. ENDOCRINE: No thyroid problems. No polyuria or polydipsia. CARDIOVASCULAR: No chest pain or edema. RESPIRATORY: No cough, shortness of breath, congestion, or wheezing. GASTROINTESTINAL: No nausea, vomiting, bloody stools or diarrhea. Positive for abdominal pain. GENITOURINARY: No dysuria. MUSCULOSKELETAL: No joint pain or swelling. LYMPHATIC: No swollen glands. NEUROLOGIC: No seizures. No headache, focal weakness or sensory changes. HEMATOLOGIC: No unusual bruising or bleeding. PSYCHIATRIC: No depression or anxiety. Physical Exam - Vital signs Vitals: Temp Pulse Resp BP Pulse Ox 98.7 F 79 17 130/80 H 98 08/23/20 16:09 08/23/20 16:09 08/23/20 16:09 08/23/20 16:09 08/23/20 16:09 - General General appearance: Appears well Notes: VITAL SIGNS: Within normal limits. GENERAL: No acute distress, non-toxic appearance. HEAD: Normal with no signs of head trauma. EYES: PERRLA, EOMI, conjunctiva normal, no discharge. EARS: Hearing grossly intact. NOSE: Normal. NECK: Normal range of motion, no tenderness, supple, no lymphadenopathy, No adenopathy, no JVD. CHEST: Clear breath sounds bilaterally. No wheezes, rales, or rhonchi. CARDIAC: Regular rate and rhythm. S1 and S2, without murmurs, gallops, or rubs. VASCULAR: No Edema. Peripheral pulses normal and equal in all extremities. ABDOMEN: Normal and soft. Discomfort to palpation over the lower anterior ribs. No rash. GASTROINTESTINAL: Bowel sounds normal GENITOURINARY: Normal, No tenderness LYMPATHTIC: No lymphadenopathy noted. MUSCULOSKELETAL: Good range of motion of all major joints. Extremities without clubbing, cyanosis or edema. NEUROLOGICAL: Alert and oriented x 3. No focal sensory or strength deficits. Speech normal. Follows commands appropriately. PSYCHIATRIC: Normal Affect, judgement and mood. SKIN: Normal appearance with no rashes or lesions. Course - Re-evaluation Re-evalutation: 08/23/20 21:13 Patient had reproducible pain at her lower anterior ribs. Her abdominal ultrasound showed liver hepatosteatosis which I informed her of. Chest x-ray is unremarkable per my review. Patient was given Toradol. I do believe this is l ikely muscular as it began after lifting a heavy item at work and worse with movement. She is nontoxic-appearing. She is resting comfortably. Patient was recommended to take anti-inflammatories. She was given strict return precautions including worsening pain, fever, nausea, vomiting, any other concerning symptoms. Patient is very agreeable to this plan. 08/23/20 23:58 - Vital Signs Vital signs: Temp Pulse Resp BP Pulse Ox 98.0 F 63 16 112/66 100 08/23/20 21:25 08/23/20 21:25 08/23/20 21:25 08/23/20 21:25 08/23/20 21:25 - Laboratory Result Diagrams: 08/23/20 16:35 08/23/20 16:35 Laboratory results interpreted by me: 08/23/20 16:35 Urine Blood MODERATE H - Diagnostic Test Radiology reviewed: Image reviewed, Reports reviewed Discharge - Discharge Clinical Impression: Hepatic steatosis Abdominal pain Qualifiers: Abdominal location: unspecified location Qualified Code(s): R10.9 - Unspecified abdominal pain Condition: Stable Disposition: HOME, SELF-CARE Instructions: Abdominal Pain ([facility]) Additional Instructions: Please follow-up with your family doctor. You can take Tylenol or ibuprofen as directed. Return to the ER if any of your symptoms worsen. For ibuprofen, you can take 600 mg every 6-8 hours. For Tylenol, you can take 500 mg every 4-6 hours. Forms: Return to Work
[2020-08-23 21:26] VITALS: BP 112/66
== END 2020-08-23 21:29 | disposition home or self-care (01) ==
LOC: ER 16:04
DX: K76.0 Fatty (change of) liver, not elsewhere classified (principal); R10.10 Upper abdominal pain, unspecified; F17.200 Nicotine dependence, unspecified, uncomplicated
CPT/HCPCS: 99285; 96372; 36415; 87086; 83690; 84703; 85025; 80053; 81001; 71046; 76705; J1885; J3490